=== PATIENT | male | born 1970 | race Caucasian/White ===

== ENCOUNTER 2016-06-21 14:13 | Emergency (ER) | payer BC ==
[~2016-06-21] VITALS: Ht 175.3 cm; Wt 102.0 kg
[2016-06-21] MEDS ORDERED: KETOROLAC 60 MG/2 ML (TORADOL) VIAL IM ONE (15:20)
[2016-06-21 15:31] LABS: BASOPHILS % (AUTO) 1 % (0-2); EOSINOPHILS # (AUTO) 0.3 10^3uL; EOSINOPHILS % (AUTO) 4 % (0-4); LYMPHOCYTES # (AUTO) 2.3 X10^3; MEAN CORPUSCULAR VOLUME 84 FL (80-100); MEAN PLATELET VOLUME 10.8 FL (6.0-9.5); MONOCYTES % (AUTO) 12 % (3-11); NEUTROPHILS # (AUTO) 4.8 X10^3; NEUTROPHILS % (AUTO) 57 % (51-67); PLATELET COUNT 252 10^3uL (150-450); WHITE BLOOD COUNT 8.47 10^3uL (4.0-11.0)
[2016-06-21 15:32] LABS: MEAN CORPUSCULAR HGB CONC 35.6 g/dL (31.0-37.0)
[2016-06-21 17:33] VITALS: BP 128/79
== END 2016-06-21 17:10 | disposition home or self-care (01) ==
LOC: ED 14:15
DX: R09.1 Pleurisy (principal); R07.89 Other chest pain
CPT/HCPCS: 36415; 71020; 85025; 96372; 99282; J1885; 99283